=== PATIENT | male | born 1965 | race Caucasian/White ===

== ENCOUNTER 2021-06-01 05:42 | Outpatient (CLI) | payer BC ==
[~2021-06-01] VITALS: Ht 182.9 cm; Wt 128.6 kg
[2021-06-02] MEDS ORDERED: TADA5TAB2 PO (10:07)
[2021-06-02] MEDS ORDERED: MULT-593 PO (10:07)
[2021-06-02] MEDS ORDERED: VANICREAM TOP (10:07)
[2021-06-02] MEDS ORDERED: TESTOST TOP (10:07)
[2021-06-02] MEDS ORDERED: ASCO100099 PO (10:07)
[2021-06-02] MEDS ORDERED: DICL50TA4 PO (10:07)
== END 2021-06-02 12:15 | disposition home or self-care (01) ==
LOC: PREOP 05:42
PROVIDERS: ATTEND Surgery
DX: Z01.818 Encounter for other preprocedural examination (principal)

== ENCOUNTER 2021-06-08 07:13 | Day surgery (SDC) | payer BC ==
[~2021-06-08] VITALS: Ht 183 cm; Wt 128.6 kg
[~2021-06-08 07:13] MED LIST: ASCO100099 PO; DICL50TA4 PO; MULT-593 PO; TADA5TAB2 PO; TESTOST TOP; VANICREAM TOP
[2021-06-08] MEDS ORDERED: LACTATED RINGERS 1,000 ML IV ONE (07:44)
[2021-06-08] MEDS ORDERED: LACTATED RINGERS 1,000 ML IV STA (07:47)
[2021-06-08 07:58] VITALS: BP 125/75
[2021-06-08] MEDS ORDERED: proPOfol 200 MG/20 ML (DIPRIVAN) VIAL IV ONE ×2 (09:14→09:32)
[2021-06-08] MEDS ORDERED: MIDAZOLAM 2 MG/2 ML (VERSED) VIAL ONE (09:14)
--- NOTE | 2021-06-08 10:00 | Progress Note-Post Operative ---
Post-Operative Progess Note Surgeon (s)/Steam Tender (s) Surgeon KELSEY APONTE DO Steam Tender: na Pre-Operative Diagnosis screening colonoscopy Post-Operative Diagnosis rectal polyp Procedure & Operative Findings Date of Procedure 06/08/21 Procedure Performed/Findings colonoscopy c hot bx polypectomy Anesthesia Type fermin Estimated Blood Loss Estimated blood loss (mL): none Specimens/Packing Specimens Removed rectal polyp KELSEY APONTE DO Jun 08, 2021 10:00
[2021-06-08 10:07] VITALS: BP 118/76
--- NOTE | 2021-06-08 10:08 | Discharge Inst-Simple/Standard ---
Discharge Inst-Standard Patient Instructions/Follow Up Plan of Care/Instructions/FU: 2 weeks Francisco Activity as Tolerated: Yes Discharge Diet: Regular Diet KELSEY APONTE DO Jun 08, 2021 10:08
--- NOTE | 2021-06-08 10:09 | Progress Note-Post Operative ---
Post-Operative Progess Note Surgeon (s)/Telecommunicator Supervisor (s) Surgeon KELSEY APONTE DO Telecommunicator Supervisor: na Pre-Operative Diagnosis screening colonoscopy Post-Operative Diagnosis rectal polyp Procedure & Operative Findings Date of Procedure 06/08/21 Procedure Performed/Findings colonoscopy c hot bx polypectomy Anesthesia Type per breakfast bar attendant Estimated Blood Loss Estimated blood loss (mL): na Specimens/Packing Specimens Removed rectal polyp KELSEY APONTE DO Jun 08, 2021 10:09
[2021-06-08 10:10] VITALS: BP 125/85
[2021-06-08 10:40] VITALS: BP 126/77
[2021-06-08 10:49] VITALS: BP 126/77
--- NOTE | 2021-06-08 14:11 | OPERATIVE REPORT ---
DATE OF SERVICE: 06/08/2021 PREOPERATIVE DIAGNOSIS: Screening colonoscopy. POSTOPERATIVE DIAGNOSIS: Rectal polyp. PROCEDURES PERFORMED: Colonoscopy with hot biopsy polypectomy. SURGEON: Kelsey Singh DO. ANESTHESIA: Per [place] CONST[place]. ESTIMATED BLOOD LOSS: None. COMPLICATIONS: None. SPECIMENS: Rectal polyp. INDICATIONS FOR PROCEDURE: The patient is a 55-year-old male needing a screening colonoscopy. He understands the risks and benefits of the procedure and wished to proceed with the procedure. Consent was signed in the chart. DESCRIPTION OF PROCEDURE: The patient was taken to the endoscopy suite and placed in a left lateral recumbent position. Timeout was performed. Digital rectal exam was performed. There were no palpable polyps, masses or ulcerations. Scope was inserted in the rectum and advanced all the way to the cecum with minimal difficulty. Prep was adequate. Scope was then slowly retracted back. No polyps, masses or ulcerations within the cecum, ascending, transverse, descending and sigmoid colon. Once in the rectum, small polyp was present, which hot biopsy polypectomy was performed. Scope was retroflexed noting no other pathology. Scope was returned to its normal position, slowly withdrawn until completely removed. The patient tolerated the procedure well without any complications and taken to the recovery room in stable condition. RECOMMENDATIONS: The patient will need repeat colonoscopy in five years. The patient will follow up in the office to discuss pathology. CC: Jessie Casanova APRN - requested, unable to deliver. Job ID: [id number] DocumentID: [id number] Dictated Date: 06/08/2021 10:11:02 Family Resource Specialist Date: 06/08/2021 14:11:14 Dictated By: KELSEY SINGH DO
--- NOTE | 2021-06-08 14:27 | Anesthesia-General Post-Op ---
MAC Patient Condition Mental Status/LOC: Same as Preop Cardiovascular: Satisfactory Nausea/Vomiting: Absent Respiratory: Satisfactory Pain: Controlled Complications: Absent Post Op Complications Complications None Follow Up Care/Instructions Patient Instructions None needed. Anesthesiology Discharge Order Discharge Order Patient is doing well, no complaints, stable vital signs, no apparent adverse anesthesia problems. No complications reported per nursing. LANI OLEA CRNA Jun 08, 2021 14:27
== END 2021-06-08 11:15 | disposition home or self-care (01) ==
LOC: ENDO 07:13
PROVIDERS: ATTEND Surgery
DX: Z12.11 Encounter for screening for malignant neoplasm of colon (principal); K62.1 Rectal polyp; E66.9 Obesity, unspecified; Z68.38 Body mass index [BMI] 38.0-38.9, adult; Z79.899 Other long term (current) drug therapy; Z82.49 Family history of ischemic heart disease and other diseases of the circulatory system
CPT/HCPCS: 88305

== ENCOUNTER 2021-09-03 17:09 | Emergency (ER) | payer BC ==
[~2021-09-03] VITALS: Ht 182.8 cm; Wt 136.1 kg
[2021-09-03] MEDS ORDERED: NS 100 ML (IVPB) BAG IV ONE (17:30)
[2021-09-03] MEDS ORDERED: IOHEXOL 350 MG/ML 100 ML (OMNIPAQUE 350) VIAL IV ONE (17:30)
[2021-09-03] MEDS ORDERED: HOLD METFORMIN - RECEIVED CONTRAST 20 ML VIAL IV SCH (17:30)
--- NOTE | 2021-09-03 17:39 | Diagnostic Imaging Report ---
PROCEDURE: CT head w/o, r/o stroke. TECHNIQUE: Multiple contiguous axial images were obtained through the brain without the use of intravenous contrast. Auto Exposure Controls were utilized during the CT exam to meet ALARA standards for radiation dose reduction. INDICATION: STROKE, unable to speak. Left-sided weakness. COMPARISON: None. FINDINGS: The ventricles and cortical sulci are age-appropriate. There is no midline shift or mass effect. No acute intracranial hemorrhage is seen. There is no CT evidence of acute territorial ischemia. The calvarium appears intact. There is significant mucosal thickening with air-fluid levels in the bilateral maxillary sinuses and in the ethmoid sinuses. IMPRESSION: 1. No acute intracranial hemorrhage or CT evidence of acute territorial ischemia. 2. Bilateral paranasal sinus disease. Findings discussed with Nader Campuzano APRN by Dr. Guillermo, on 09/03/2021 5:27 PM. Dictated by: Dictated on workstation # [id number]
--- NOTE | 2021-09-03 17:41 | Diagnostic Imaging Report ---
EXAMINATION: Chest radiograph, portable AP view. DATE: 09/03/2021 5:34 PM INDICATION: 55-year-old male, STROKE. COMPARISON: None. FINDINGS: There are low lung volumes. The heart appears borderline enlarged. There is no identified pneumothorax. There is no large pleural effusion. There is no definite focal airspace consolidation. There are technical limitations of the study relating to patient body habitus and difficulties with exposure. IMPRESSION: Low lung volumes and borderline cardiomegaly without definite acute cardiopulmonary abnormality. Dictated by: Dictated on workstation # [id number]
[2021-09-03 17:49] LABS: BASOPHILS % (AUTO) 1 % (0-10); EOSINOPHILS # (AUTO) 0.1 10^3/uL (0.0-0.3); EOSINOPHILS % (AUTO) 3 % (0-10); HEMATOCRIT 48 % (40-54); HEMOGLOBIN 15.9 g/dL (13.3-17.7); LYMPHOCYTES # (AUTO) 1.7 10^3/uL (1.0-4.0); LYMPHOCYTES % (AUTO) 30 % (12-44); MEAN CORPUSCULAR HEMOGLOBIN 29 pg (25-34); MEAN CORPUSCULAR HGB CONC 33 g/dL (32-36); MEAN CORPUSCULAR VOLUME 88 fL (80-99); MEAN PLATELET VOLUME 9.3 fL (9.0-12.2); MONOCYTES # (AUTO) 0.7 10^3/uL (0.0-1.0); MONOCYTES % (AUTO) 12 % (0-12); NEUTROPHILS % (AUTO) 54 % (42-75); PLATELET COUNT 244 10^3/uL (130-400); WHITE BLOOD COUNT 5.6 10^3/uL (4.3-11.0)
--- NOTE | 2021-09-03 17:54 | ED Neurological Problem ---
General Chief Complaint: Neuro-Stroke Like Symptoms Stated Complaint: L SIDE PARALYSIS Source: patient, EMS Exam Limitations: no limitations History of Present Illness Date Seen by Provider: Sep 03, 2021 Time Seen by Provider: 17:30 Initial Comments Patient is a 55-year-old male who presents to the emergency department with a chief complaint of strokelike symptoms. Onset of symptoms noted to be around 4:30 PM this evening. 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 EMS reports that he was having a difficult time with coordination and movement of his right upper extremity. Significant word finding difficulties. During transport he seemed to have some improvement in the right upper extremity weakness. He continues to have significant expressive aphasia. He states that he has had a headache pretty much all day long today. Denies any nausea, vomiting, fevers chills, chest pain or shortness of breath. He does tells me that he did have Covid 2 weeks ago, it did not require hospitalization. He denies alcohol, drug use or smoking. No history of hypertension or diabetes. He has never had symptoms like this before. All other review of systems reviewed and negative except as stated. Timing/Duration: 1/2 hour Severity: severe Associated Symptoms: other (Expressive aphasia, right upper extremity intermittent weakness, paresthesia right upper and right lower extremity) Allergies and Home Medications Allergies Coded Allergies: No Known Allergies (Unverified Allergy, Unknown, 06/08/21) Patient Home Medication List Home Medication List Reviewed: Yes Ascorbic Acid (Vitamin C with Anna Hips) 1,000 Mg Tablet, 1,000 MG PO DAILY, (Reported) Entered as Reported by: FRANCISCA SANDRA on 06/02/211006 Diclofenac Potassium (Diclofenac Potassium) 50 Mg Tablet, 50 MG PO DAILY, (Reported) Entered as Reported by: FRANCISCA SANDRA on 06/02/211006 Multivitamin with Minerals (Multiple Vitamin) 1 Each Tablet, 1 EACH PO DAILY, (Reported) Entered as Reported by: FRANCISCA SANDRA on 06/02/211006 Tadalafil (Cialis) 5 Mg Tablet, 5 MG PO DAILY, (Reported) Entered as Reported by: FRANCISCA SANDRA on 06/02/21 1007 [Testost/Vanicream] 10% , 15 GR TOP DAILY, (Reported) Entered as Reported by: FRANCISCA SANDRA on 06/02/21 1007 Review of Systems Review of Systems Constitutional: see HPI Eyes: No Symptoms Reported Ears, Nose, Mouth, Throat: no symptoms reported Respiratory: no symptoms reported Cardiovascular: no symptoms reported Gastrointestinal: no symptoms reported Genitourinary: no symptoms reported Musculoskeletal: no symptoms reported Skin: no symptoms reported Psychiatric/Neurological: Headache, Numbness (RUE and RLE), Unable to Move Upper Ext (RUE) All Other Systems Reviewed Negative Unless Noted: Yes Past Jdekzto-Fsehcr-Srbgta Hx Patient Social History Tobacco Use?: No Use of E-Cig and/or Vaping dev: No Substance use?: No Alcohol Use?: No Pt feels they are or have been: No Immunizations Up To Date Influenza Vaccine Up-to-Date: Yes; Up-to-Date First/Initial COVID19 Vaccinat: 11/2020 Second COVID19 Vaccination Shmuel: 12/2020 Third COVID19 Vaccination Date: 11/2020 Seasonal Allergies Seasonal Allergies: No Past Medical History Surgeries: Yes (SKIN CANCER REMOVAL) Respiratory: No Cardiac: No Neurological: No Genitourinary: No Gastrointestinal: No Musculoskeletal: No Endocrine: No HEENT: No (WEARS READING GLASSES ) Loss of Vision: Denies Hearing Impairment: Denies Cancer: Yes Skin Did You Recieve Any Treatments: Yes What Type of Treatment Did You: Surgical Intervention Psychosocial: No Integumentary: Yes (HX OF SKIN CA; SKIN TAGS ) Blood Disorders: No Adverse Reaction/Blood Tranf: No Physical Exam Vital Signs Vital Signs - First Documented 09/03/21 17:09 Temp 36.5 Pulse 81 Resp 16 B/P (MAP) 159/69 (99) Pulse Ox 98 O2 Delivery Room Air Capillary Refill : Height, Weight, BMI Height: '" Weight: lbs. oz. kg; 38.40 BMI Method: General Appearance: WD/WN, no apparent distress HEENT: PERRL/EOMI, normal ENT inspection, pharynx normal Neck: full range of motion Respiratory: lungs clear, normal breath sounds, no respiratory distress, no accessory muscle use Cardiovascular: regular rate, rhythm, no murmur Gastrointestinal: normal bowel sounds, non tender, soft Extremities: normal range of motion, non-tender, normal inspection, no pedal edema, normal capillary refill Neurologic/Psychiatric: alert, normal mood/affect, oriented x 3, aphasia (expressive), sensory deficit (RUE and RLE) Crainal Nerves: normal hearing, normal speech, PERRL; No abnormal eye position Coordination/Gait: normal finger to nose, other (gait not tested) Motor/Sensory: no motor deficit, no pronator drift Skin: normal color, warm/dry Stroke NIH Stroke Scale Assessment Level of Consciousness: 0=Alert (0), Level of Consciousness-Questions: 0=Answers both month/age (0), LOC Commands: 0=Performs both tasks (0), Visual Mae: 0=No visual loss (0), Facial Movement (Facial Paresis): 0=Normal symmetrical mnt (0), Motor Function-Arms Right: 0=No drift (0), Motor Function-Arms Left: 0=No drift (0), Motor Function-Legs Right: 0=No drift (0), Motor Function-Legs Left: 0=No drift (0), Limb Ataxia: 0=Absent (0), Sensory: 1=Mild to Moderate loss (1), Best Language: 1=Mild to moderat aphasia (1), Dysarthria: 0=Normal (0), Extinction & Inattention: 0=No abnormality (0), Total: Progress/Results/Core Measures Results/Orders Lab Results Laboratory Tests Test 09/03/21 17:43 Range/Units White Blood Count 5.6 4.3-11.0 10^3/uL Red Blood Count 5.40 4.30-5.52 10^6/uL Hemoglobin 15.9 13.3-17.7 g/dL Hematocrit 48 40-54 % Mean Corpuscular Volume 88 80-99 fL Mean Corpuscular Hemoglobin 29 25-34 pg Mean Corpuscular Hemoglobin Concent 33 32-36 g/dL Red Cell Distribution Width 12.9 10.0-14.5 % Platelet Count 244 130-400 10^3/uL Mean Platelet Volume 9.3 9.0-12.2 fL Immature Granulocyte % (Auto) 1 % Neutrophils (%) (Auto) 54 42-75 % Lymphocytes (%) (Auto) 30 12-44 % Monocytes (%) (Auto) 12 0-12 % Eosinophils (%) (Auto) 3 0-10 % Basophils (%) (Auto) 1 0-10 % Neutrophils # (Auto) 3.0 1.8-7.8 10^3/uL Lymphocytes # (Auto) 1.7 1.0-4.0 10^3/uL Monocytes # (Auto) 0.7 0.0-1.0 10^3/uL Eosinophils # (Auto) 0.1 0.0-0.3 10^3/uL Basophils # (Auto) 0.0 0.0-0.1 10^3/uL Immature Granulocyte # (Auto) 0.0 0.0-0.1 10^3/uL Prothrombin Time 13.9 12.2-14.7 SEC INR Comment 1.0 0.8-1.4 Activated Partial Thromboplast Time 40 H 24-35 SEC D-Dimer <= 0.27 0.00-0.49 UG/ML Sodium Level 136 135-145 MMOL/L Potassium Level 4.1 3.6-5.0 MMOL/L Chloride Level 101 98-107 MMOL/L Carbon Dioxide Level 24 21-32 MMOL/L Anion Gap 11 5-14 MMOL/L Blood Urea Nitrogen 14 7-18 MG/DL Creatinine 0.97 0.60-1.30 MG/DL Estimat Glomerular Filtration Rate 81 BUN/Creatinine Ratio 14 Glucose Level 95 70-105 MG/DL Glucometer 102 70-110 MG/DL Calcium Level 9.6 8.5-10.1 MG/DL Corrected Calcium 9.8 8.5-10.1 MG/DL Total Bilirubin 0.8 0.1-1.0 MG/DL Aspartate Amino Transf (AST/SGOT) 20 5-34 U/L Alanine Aminotransferase (ALT/SGPT) 41 0-55 U/L Alkaline Phosphatase 53 40-136 U/L Troponin I < 0.028 <0.028 NG/ML Total Protein 6.7 6.4-8.2 GM/DL Albumin 3.8 3.2-4.5 GM/DL My Orders Orders - KATIE SCHMITT MD Iohexol Injection (Omnipaque 350 Mg/Ml 1 (09/03/21 17:30) Received Contrast (Hold Metformin- Contr (09/03/21 17:30) Ns (Ivpb) (Sodium Chloride 0.9% Ivpb Bag (09/03/21 17:30) Tenecteplase (Tnkase) (09/03/21 17:55) Medications Given in ED Current Medications Medications Dose Ordered Sig/Ariella Route Start Time Stop Time Status Last Admin Dose Admin Iohexol 100 ml ONCE ONCE IV 09/03/21 17:30 09/03/21 17:31 DC 09/03/21 18:11 75 ML Sodium Chloride 100 ml ONCE ONCE IV 09/03/21 17:30 09/03/21 17:31 DC 09/03/21 18:11 80 ML Tenecteplase 50 mg STK-MED ONCE IV 09/03/21 17:55 09/03/21 17:57 DC 09/03/21 18:06 25 MG Vital Signs/I&O 09/03/21 09/03/21 17:09 18:06 Temp 36.5 Pulse 81 81 Resp 16 B/P (MAP) 159/69 (99) 162/81 Pulse Ox 98 O2 Delivery Room Air FSBG Bedside Testing Finger Stick Blood Glucose: 102 Blood Glucose Action Taken: rn notified Progress Progress Note : Time: 18:09 Progress Note Case discussed with stroke neurology at 1747, Dr. Downing. Notified him of NIH of 2 at this point. Points off for sensory deficit in the right upper and lower extremity as well as expressive aphasia. Abnormal CT with left ICA occlusion just past the bifurcation extending into the petrous portion as well as a left M2 occlusion noted on CT angiogram. He recommends TPA and transfer to to a stroke bed secondary to risk of decompensation. I discussed with Dominic the risks and benefits of TPA, he wishes to proceed. I also discussed the case with his brother Hugo. We advised him that he would be going to this evening. His vital signs are currently stable, blood pressure 151/89, not tachycardic. Maintaining his airway, awake alert. Initial ECG Impression Date: Sep 03, 2021 Initial ECG Impression Time: 17:34 Initial ECG Rate: 82 Initial ECG Rhythm: Normal Sinus Initial ECG Intervals: Normal Initial ECG Impression: Nonspecific Changes (III, avF) Initial ECG Comparisson: No Previous ECG Available Critical Care Note Critical Care Start Time: 17:20 Stop Time: 18:20 Total Time (minutes) 40 minutes critical care time in the evaluation and management of this 55-year-old with acute ischemic stroke. Time includes initial evaluation and management, review and interpretation of laboratory studies, CTs with radiology, discussion with stroke neurology, monitoring patient after TPA. Departure Impression Primary Impression: Acute ischemic stroke Disposition: 02 XFER SHT-TRM HOSP Condition: Critical Transfer Transfer Reason: Exceeds level of care Time Spoke to Accepting Phy: 17:53 Transfer Progress Notes Discussed with Dr Downing, Neurology Transfer Facility: Method of Transfer: Air Departure-Patient Inst. Referrals: NO,LOCAL PHYSICIAN (PCP) Primary Care Physician SALINAS RIVERA APRN (Family) Primary Care Physician KATIE SCHMITT MD Sep 03, 2021 17:54
--- NOTE | 2021-09-03 17:56 | Diagnostic Imaging Report ---
PROCEDURE: CT angiography of the head and CT angiography of the neck with and without contrast. TECHNIQUE: Contiguous noncontrast images were obtained from the skull base through the vertex. After intravenous contrast administration, helical CT angiography of the neck was performed. Source data was reformatted into 3D MIP projections. Delayed post contrast acquisition was also obtained. Auto Exposure Controls were utilized during the CT exam to meet ALARA standards for radiation dose reduction. INDICATION: Dizziness, fall, STROKE, left-sided weakness, unable to speak. COMPARISON: CT head from the same day. FINDINGS: There is some motion artifact resulting in suboptimal evaluation. There is also streak artifact from hardware in the teeth. The right common and internal carotid arteries appear normal. There is complete occlusion of the left internal carotid artery shortly after the bifurcation which extends throughout its course into the petrous segment. The right vertebral artery appears normal. The left vertebral artery appears normal. The anterior communicating artery appears normal. Anterior cerebral arteries are unremarkable. There may be an occlusion of the left middle cerebral artery in the M2 region (image [id number] through 443 of series 2). The left posterior communicating artery is seen. The right is not well seen. The posterior cerebral arteries appear normal. The superior cerebellar arteries are not well opacified but appear to be patent. The basilar artery appears patent. The calvarium is intact. There is paranasal sinus disease, as described on the prior exam. There are degenerative changes in the spine with no acute osseous abnormality identified. IMPRESSION: 1. Complete occlusion of the left internal carotid artery. 2. Suspected left MCA M2 occlusion. Findings discussed with Nader Campuzano APRN by Dr. Guillermo, on 09/03/2021 5:46 PM. Dictated by: Dictated on workstation # [id number]
[2021-09-03 17:59] LABS: ALBUMIN 3.8 GM/DL (3.2-4.5); CHLORIDE 101 MMOL/L (98-107); POTASSIUM 4.1 MMOL/L (3.6-5.0); SODIUM 136 MMOL/L (135-145)
[2021-09-03 18:00] LABS: CALCIUM 9.6 MG/DL (8.5-10.1)
[2021-09-03 18:01] LABS: GLUCOSE 95 MG/DL (70-105); TOTAL PROTEIN 6.7 GM/DL (6.4-8.2)
[2021-09-03 18:02] LABS: CARBON DIOXIDE 24 MMOL/L (21-32)
[2021-09-03 18:03] LABS: BILIRUBIN,TOTAL 0.8 MG/DL (0.1-1.0)
[2021-09-03 18:05] LABS: ALKALINE PHOSPHATASE 53 U/L (40-136); CREATININE SERUM 0.97 MG/DL (0.60-1.30); GFR ESTIMATED 81
[2021-09-03 18:06] LABS: BUN/CREATININE RATIO 14; FIBRIN DEGRADATION PRODUCTS <= 0.27 UG/ML (0.00-0.49); PARTIAL THROMBOPLASTIN TIME 40 SEC (24-35); PROTHROMBIN TIME PATIENT 13.9 SEC (12.2-14.7)
[2021-09-03] MEDS: TENECTEPLASE 50 MG VIAL IV ONE (18:06)
[2021-09-03 18:08] LABS: ALANINE AMINOTRANSFERASE 41 U/L (0-55)
[2021-09-03 18:50] VITALS: BP 146/85
== END 2021-09-03 18:50 | disposition short-term general hospital (02) ==
LOC: EDUNIT# 17:09 → ER 17:11
DX: I63.9 Cerebral infarction, unspecified (principal)
CPT/HCPCS: 36415; 70450; 70496; 70498; 71045; 80053; 82947; 84484; 85025; 85379; 85610; 85730; 92977; 93005; 93041; 99291

== ENCOUNTER 2021-09-23 11:00 | Outpatient (RCR) | payer BC | END 2021-09-24 | disposition home or self-care (01) | PROVIDERS: ATTEND Family Medicine | DX: I66.02 Occlusion and stenosis of left middle cerebral artery (principal) ==

== ENCOUNTER 2021-10-21 11:15 | Outpatient (RCR) | payer BC | END 2021-10-25 | disposition home or self-care (01) | PROVIDERS: ATTEND Family Medicine | DX: I66.02 Occlusion and stenosis of left middle cerebral artery (principal) ==

== ENCOUNTER 2021-11-01 11:00 | Outpatient (RCR) | payer BC | END 2021-11-01 11:41 | disposition home or self-care (01) | PROVIDERS: ATTEND Family Medicine | DX: I69.328 Other speech and language deficits following cerebral infarction (principal); I69.398 Other sequelae of cerebral infarction; R20.8 Other disturbances of skin sensation ==